=== PATIENT | female | born 1970 | race American Indian/Alaskan Native ===

== ENCOUNTER 2017-09-13 19:56 | Emergency (ER) | payer BC ==
[2017-09-13 20:53] VITALS: BMI 28.3
--- NOTE | 2017-09-13 21:04 | ED PDOC ---
Arrival/HPI <Srikanth Clark - Last Filed: 09/13/17 21:46> <Karina Porter - Last Filed: 09/14/17 03:28> - General Chief Complaint: Dizziness/Lightheaded Time Seen by Provider: 09/13/17 20:07 - History of Present Illness Narrative History of Present Illness (Text): 47 year old female with no reported past medical history presents with burning midline back pain which started on . She reports that the pain progressively worsened until Tuesday. The pain has not remitted since Tuesday. The patient reports also having pressure behind her eyes which started Tuesday. She reports taking Alleve for the pain, which did not improve the pain. She also has dizziness that started today. She denies headache, change in vision, change in hearing, chest pain, heart palpitations, shortness of breath, nausea, vomiting, constipation, diarrhea, dysuria, hematuria, and urinary frequency. (Karina Porter) Past Medical History - Provider Review Nursing Documentation Reviewed: Yes - Infectious Disease Hx of Infectious Diseases: None - Tetanus Immunization Tetanus Immunization: Unknown - Past Medical History Past Medical History: Non-Contributing - Psychiatric Hx Substance Use: No - Past Surgical History Past Surgical History: Non-Contributing - Surgical History Other/Comment: one fallopian tube removed - Anesthesia Hx Anesthesia: Yes Hx Anesthesia Reactions: No Hx Malignant Hyperthermia: No - Suicidal Assessment Feels Threatened In Home Enviroment: No <Karina Porter - Last Filed: 09/14/17 03:28> Family/Social History - Physician Review Nursing Documentation Reviewed: Yes Family/Social History: Hypertension Smoking Status: Never Smoked Hx Alcohol Use: Yes Frequency of alcohol use: Socially Hx Substance Use: No <Karina Porter - Last Filed: 09/14/17 03:28> Allergies/Home Meds <Srikanth Clark - Last Filed: 09/13/17 21:46> <Karina Porter - Last Filed: 09/14/17 03:28> Allergies/Adverse Reactions: Allergies No Known Allergies Allergy (Verified 09/13/17 20:56) Review of Systems - Physician Review All systems were reviewed & negative as marked: Yes - Review of Systems Constitutional: Normal Eyes: Normal, Eye Pain (pressure behind both eyes). absent: Vision Changes, Photophobia ENT: Normal Respiratory: Normal. absent: SOB, Cough Cardiovascular: Normal. absent: Chest Pain Gastrointestinal: Normal. absent: Abdominal Pain Genitourinary Female: Normal. absent: Dysuria, Frequency, Hematuria Musculoskeletal: Back Pain (midline) Skin: Normal Neurological: Normal, Dizziness. absent: Headache <Karina Porter - Last Filed: 09/14/17 03:28> Physical Exam <Srikanth Clark - Last Filed: 09/13/17 21:46> Vital Signs Reviewed: Yes Temperature: Afebrile Blood Pressure: Hypertensive Pulse: Tachycardic Respiratory Rate: Normal Appearance: Positive for: Well-Appearing Pain Distress: None Mental Status: Positive for: Alert and Oriented X 3 - Systems Exam Head: Present: Atraumatic, Normocephalic Pupils: Present: PERRL Extroacular Muscles: Present: EOMI Conjunctiva: Present: Normal Mouth: Present: Moist Mucous Membranes Nose (External): Present: Atraumatic Respiratory/Chest: Present: Clear to Auscultation, Good Air Exchange Cardiovascular: Present: Regular Rate and Rhythm, Normal S1, S2. No: Murmurs Abdomen: Present: Normal Bowel Sounds. No: Tenderness, Distention Back: Present: Normal Inspection, Midline Tenderness (does not worsen with palpation) Upper Extremity: Present: Normal Inspection, Normal ROM, NORMAL PULSES Lower Extremity: Present: Normal Inspection, NORMAL PULSES, Normal ROM Neurological: Present: GCS=15, CN II-XII Intact, Speech Normal, Motor Func Grossly Intact, Normal Sensory Function Skin: Present: Warm, Dry, Normal Color Psychiatric: Present: Alert, Oriented x 3, Normal Insight, Normal Concentration <Karina Porter - Last Filed: 09/14/17 03:28> Vital Signs Temp Pulse Resp BP Pulse Ox 09/13/17 20:56 97.8 F 102 H 18 142/99 H 98 Medical Decision Making <Srikanth Clark - Last Filed: 09/13/17 21:46> - EKG Interpretation Interpreted by ED Physician: Yes <Karina Porter - Last Filed: 09/14/17 03:28> ED Course and Treatment: 09/13/17 21:47 Aby Ramosson in a 47 year old female who presents to the emergency department this evening with a complaint of worsening, burning sensation midline back pain that began 5 days ago. In agreement with resident note which contains more details about the patient. Patient was seen and evaluated with resident. Came up with plan and treatment together. (Srikanth Clark) Impression: 47 year old female with no reported past medical history presents with burning midline back pain which started on , pressure behind eyes which started Tuesday, and dizziness that started today. Assessment: musculoskeletal back pain, possible intracranial hypertension Rule out GERD, spinal fracture, spinal stenosis, Plan: CBC, CMP to monitor for anemia, leukocytosis and electrolyte abnormalities. Cardiac ISO, EKG to rule out CT, arrhythmias. Chest X ray ordered. Head CT to evaluate for intracranial hypertension. 09/13/17 22:40 CBC, CMP, Cardiac ISO unremarkable so can rule out anemia, electrolyte abnormalities, CT, arrhythmias. 09/14/17 01:23 Chest X ray shows no acute findings. Thoracic X ray shows no acute findings. 09/14/17 01:[address]: No acute findings. 09/14/17 01:59 EKG: normal sinus rhythm Vent rate: 70 IA: 160 QRS: 72 QT/QTc: 422/455 Patient has no acute findings on imaging and all labs came back unremarkable. Patient can follow up with PCP for further evaluation and workup. (Karina Porter) - Lab Interpretations Lab Results: 09/13/17 21:38 09/13/17 21:38 Lab Results 09/13/17 21:42: POC Glucose (mg/dL) 102 09/13/17 21:38: Sodium 142, Potassium 3.9, Chloride 105, Carbon Dioxide 28, Anion Gap 13, BUN 19, Creatinine 0.8, Est GFR ( Amer) > 60, Est GFR (Non- Af Amer) > 60, Random Glucose 93, Calcium 9.3, Magnesium 1.8, Total Bilirubin 0.4, AST 21, ALT 36, Alkaline Phosphatase 64, Lactate Dehydrogenase 343, Total Creatine Kinase 98, Troponin I < 0.01, Total Protein 7.4, Albumin 4.3, Globulin 3.2, Albumin/Globulin Ratio 1.3 09/13/17 21:38: WBC 8.2, RBC 3.99, Hgb 12.1, Hct 36.6, MCV 91.7, MCH 30.3, MCHC 33.1, RDW 12.1, Plt Count 278, MPV 9.1, Gran % 58.3, Lymph % (Auto) 33.3, [place] % (Auto) 7.3 H, Eos % (Auto) 1.0 L, Baso % (Auto) 0.1, Gran # 4.77, Lymph # ( Auto) 2.7, [place] # (Auto) 0.6, Eos # (Auto) 0.1, Baso # (Auto) 0.01 - RAD Interpretation Radiology Orders: 09/13/17 20:59 HEAD W/O CONTRAST [CT] Stat CHEST ONE VIEW [RAD] Stat 09/13/17 21:34 DORSAL (THORACIC) SPINE [RAD] Stat - Scribe Statement The provider has reviewed the documentation as recorded by the Scribe <Srikanth Clark - Last Filed: 09/13/17 21:46> - PA / BIBLIOGRAPHIC SERVICES SPECIALIST / Resident Statement MD/DO has reviewed & agrees with the documentation as recorded. MD/DO has examined the patient and agrees with the treatment plan. <Karina Porter - Last Filed: 09/14/17 03:28> - Scribe Statement Radha Castañeda Provider Scribe Attestation: All medical record entries made by the Scribe were at my direction and personally dictated by me. I have reviewed the chart and agree that the record accurately reflects my personal performance of the history, physical exam, medical decision making, and the department course for this patient. I have also personally directed, reviewed, and agree with the discharge instructions and disposition. (Srikanth Clark) Disposition/Present on Arrival <Srikanth Clark - Last Filed: 09/13/17 21:46> - Present on Arrival Any Indicators Present on Arrival: No History of DVT/PE: No History of Uncontrolled Diabetes: No Urinary Catheter: No History of Decub. Ulcer: No History Surgical Site Infection Following: None - Disposition Have Diagnosis and Disposition been Completed?: Yes Disposition Time: 01:38 Patient Plan: Discharge <Karina Porter - Last Filed: 09/14/17 03:28> - Disposition Diagnosis: Musculoskeletal back pain Disposition: HOME/ ROUTINE Patient Problems: Current Active Problems Problem Status Onset Back pain Acute Dizziness Acute Condition: STABLE Additional Instructions: ABY HOWELL, thank you for letting us take care of you today. Your provider was Srikanth Clark MD and Karina Porter DO and you were treated for headache and musculoskeletal back pain. The emergency medical care you received today was directed at your acute symptoms. Head CT, Chest X Ray, EKG and Labs showed no acute findings. You were given flexeril 10 mg and motrin 400 mg for 5 days each. Return to the Emergency Department if your symptoms worsen, do not improve, or if you have any other problems. Please contact [facility] for follow up appointment. Bring any paperwork you were given at discharge with you along with any medications you are taking to your follow up visit. Our treatment cannot replace ongoing medical care by a primary care provider outside of the emergency department. Thank you for allowing the [facility] team to be part of your care today. Prescriptions: Cyclobenzaprine [Cyclobenzaprine HCl] 10 mg PO TID 5 Days #15 tab Ibuprofen [Motrin] 400 mg PO TID 5 Days #15 tab Referrals: [facility] [Outside] - Follow up with primary Forms: [employer] (Japanese)
[2017-09-13 22:23] LABS: BASO # 0.01 K/mm3 (0.0-2.0); BASO % 0.1 % (0.0-3.0); EOS # 0.1 (0.0-0.7); GRAN # 4.77 (1.4-6.5); GRAN % 58.3 % (50.0-68.0); HEMOGLOBIN 12.1 g/dL (12.0-16.0); LYMPH # 2.7 (1.2-3.4); LYMPH % 33.3 % (22.0-35.0); MEAN CELL VOLUME 91.7 fl (80.0-105.0); MEAN CORPUSCULAR HEMOGLOBIN 30.3 pg (25.0-35.0); MEAN CORPUSCULAR HGB CONC 33.1 g/dl (31.0-37.0); MEAN PLATELET VOLUME 9.1 fl (7.0-11.0); MONO # 0.6 (0.1-0.6); MONO % 7.3 % (1.0-6.0); RBC 3.99 10^6/uL (3.5-6.1); RED CELL DISTRIBUTION WIDTH 12.1 % (11.5-14.5); WHITE BLOOD COUNT 8.2 10^3/ul (4.5-11.0)
[2017-09-13 22:34] LABS: ALB/GLOB RATIO 1.3 (1.1-1.8); ALBUMIN 4.3 g/dL (3.0-4.8); ALT/SGPT 36 U/L (7-56); AST/SGOT 21 U/L (14-36); BLOOD UREA NITROGEN 19 mg/dL (7-21); CALCIUM 9.3 mg/dL (8.4-10.5); GFR AFRICAN-AMERICAN > 60; GFR NON-AFRICAN AMERICAN > 60
[2017-09-13 22:44] LABS: TROPONIN I < 0.01 ng/mL
[2017-09-14 02:17] VITALS: BP 141/89; PULSE 72; O2SAT 100
[2017-09-14 02:19] VITALS: RESP 16; TEMP 98.1
--- NOTE | 2017-09-14 08:59 | CT ---
Date of service: 09/14/2017 PROCEDURE: CT HEAD WITHOUT CONTRAST. HISTORY: pressure behind eyes, dizziness COMPARISON: None available. TECHNIQUE: Axial computed tomography images were obtained through the head/brain without intravenous contrast. Coronal and sagittal reconstructed images. Radiation dose: Total exam DLP = 756.67 mGy-cm. This CT exam was performed using one or more of the following dose reduction techniques: Automated exposure control, adjustment of the mA and/or kV according to patient size, and/or use of iterative reconstruction technique. FINDINGS: HEMORRHAGE: No intracranial hemorrhage. BRAIN: No mass effect or edema. No atrophy or chronic microvascular ischemic changes. VENTRICLES: Unremarkable. No hydrocephalus. CALVARIUM: Unremarkable. PARANASAL SINUSES: Unremarkable as visualized. No significant inflammatory changes. MASTOID AIR CELLS: Unremarkable as visualized. No inflammatory changes. OTHER FINDINGS: None. IMPRESSION: No acute intracranial abnormalities. No significant findings to account for the clinical presentation. Concordant results (preliminary interpretation) provided by [employer]. Procedure Completed: 00:38. Preliminary ([facility]) Report: Dictated and Authenticated: 01:34. Final Interpretation: 08:57.
--- NOTE | 2017-09-14 10:00 | RAD ---
Date of service: 09/14/2017 PROCEDURE: CHEST RADIOGRAPH, 1 VIEW HISTORY: r/o infiltrate COMPARISON: 06/15/2014 FINDINGS: LUNGS: Clear. PLEURA: No pneumothorax or pleural fluid seen. CARDIOVASCULAR: Normal. OSSEOUS STRUCTURES: No significant abnormalities. VISUALIZED UPPER ABDOMEN: Normal. OTHER FINDINGS: None. IMPRESSION: No active disease.
--- NOTE | 2017-09-14 10:52 | RAD ---
Date of service: 09/14/2017 HISTORY: back pain COMPARISON: No prior. FINDINGS: BONES: Alignment maintained. No fracture. DISC SPACES: Normal. SOFT TISSUES: Normal. OTHER FINDINGS: None. IMPRESSION: Normal radiographs of the thoracic spine.
--- NOTE | 2017-09-14 18:41 | CARD ---
APPROVED REPORT Date of service: 09/14/2017 EKG Measurement Heart [id number] <Conclusion> Normal sinus rhythm Normal ECG
== END 2017-09-14 02:18 | disposition home or self-care (01) ==
LOC: ED 19:56
DX: M54.9 Dorsalgia, unspecified (principal)